=== PATIENT | male | born 1990 | race Caucasian/White ===

== ENCOUNTER 2017-10-08 18:09 | Emergency (ER) | payer SELFPAY ==
[2017-10-08 18:25] VITALS: BP 108/60
[2017-10-08] MEDS ORDERED: Ketorolac INJ* 60 MG/2 ML VIAL IM ONE (18:42)
--- NOTE | 2017-10-08 18:47 | UC ---
Back Pain HPI - HPI Summary HPI Summary: bent over this morning and has sudden pain and spasm in his lumbar back has used ibuprofen and Lidoderm patch without relief today--no radiating in to legs no bowel or bladder issues - History of Current Complaint Chief Complaint: UCBackPain Stated Complaint: BACK COMPLAINT Time Seen by Provider: 10/08/17 18:36 Hx Obtained From: Patient Onset/Duration: Sudden Onset, Lasting Days - 1 Timing: Constant Pain Intensity: 7 Pain Scale Used: 0-10 Numeric Back Pain: Is Discrete @ - lumbar spine Character: Aching, Throbbing, Spasmodic, Stiffness Aggravating Factor(s): Movement Alleviating Factor(s): Nothing - Allergies/Home Medications Allergies/Adverse Reactions: Allergies Allergy/AdvReac Type Severity Reaction Status Date / Time No Known Allergies Allergy Verified 10/08/17 18:19 Home Medications: Home Medications Acetaminophen [Extra Strength Non-Aspirin] 1,000 mg PO Q6H PRN 10/08/17 [ History Confirmed 10/08/17] PMH/Surg Hx/FS Hx/Imm Hx Previously Healthy: Yes - Surgical History Surgical History: Yes Surgery Procedure, Year, and Place: below nipple cyst removed ~2010 - Family History Known Family History: Positive: None - Social History Occupation: Unemployed Lives: With Family Alcohol Use: None Substance Use Type: None Substance Use Comment - Amount & Last Used: past hx of opiates--stopped in 2014 Smoking Status (MU): Heavy Every Day Tobacco Smoker Type: Cigarettes Amount Used/How Often: 1 ppd Length of Time of Smoking/Using Tobacco: 11 yrs Have You Smoked in the Last Year: Yes Cessation Counseling: Patient Advised to Stop Review of Systems Constitutional: Negative Skin: Negative Eyes: Negative ENT: Negative Respiratory: Negative Cardiovascular: Negative Gastrointestinal: Negative Genitourinary: Negative Motor: Decreased ROM - lumbar spine Neurovascular: Negative Musculoskeletal: Arthralgia - lumar spine Neurological: Negative Psychological: Negative Is Patient Immunocompromised?: No All Other Systems Reviewed And Are Negative: Yes Physical Exam Triage Information Reviewed: Yes Appearance: Well-Appearing, Well-Nourished, Pain Distress Vital Signs: Initial Vital Signs Temp 97.8 F 10/08/17 18:21 Pulse 66 10/08/17 18:21 Resp 14 10/08/17 18:21 BP 108/60 10/08/17 18:21 Pulse Ox 100 10/08/17 18:21 Vital Signs Reviewed: Yes Eye Exam: Normal Eyes: Positive: Conjunctiva Clear ENT Exam: Normal ENT: Positive: Normal ENT inspection, Hearing grossly normal. Negative: Trismus , Muffled voice, Hoarse voice Dental Exam: Normal Neck exam: Normal Neck: Positive: Supple, Nontender, No Lymphadenopathy Respiratory Exam: Normal Respiratory: Positive: Chest non-tender, No respiratory distress, No accessory muscle use Cardiovascular Exam: Normal Cardiovascular: Positive: RRR, Pulses Normal, Brisk Capillary Refill Abdominal Exam: Normal Abdomen Description: Negative: CVA Tenderness (R), CVA Tenderness (L) Musculoskeletal Exam: Other Musculoskeletal: Positive: Strength Intact, No Edema, ROM Limited @ - lumbar spine Neurological Exam: Normal Neurological: Positive: Alert, Muscle Tone Normal Psychological Exam: Normal Skin Exam: Normal Diagnostics - Radiology No standard instances Xray Interpretation: No Acute Changes Radiology Interpretation Completed By: ED Physician, Radiologist - Patient Name : TARIQ HAMILTON Medical Record#: [id number] Ordering Physician: Cherelle Ortega NP Acct.#: [id number] : 1990 Age: 27 Sex: M Location: [facility] Exam Date : 10/08/17 184 ADM Status: REG ER Order Information: SP LUMBARSACRAL 4+ VWS Accession Number: [id number] CPT: 35816 Indication: Low back pain since yesterday without proceeding injury. Comparison: No relevant prior exams available on the [facility] PACS for comparison. Technique: AP, lateral, and oblique views lumbar sacral spine. Report: Alignment is anatomic. No cortical disruption or trabecular impaction to indicate a vertebral body fracture. Oblique views without evidence for spondylolysis. Multilevel small Schmorl node endplate herniations. Multilevel mild disc space narrowing with sparing at L4- L5. Mild L5-S1 facet joint osteoarthritis. Unremarkable soft tissue contours. IMPRESSION: #. Mild degenerative spondylosis and facet joint osteoarthritis. _ <Electronically signed by Binh Barraza MD in OV> 10/08/17 190 Dictated By: Binh Barraza MD Dictated Date/Time: 10/08/171907 Transcribed Date/Time: 10/08/171900 Copy to: CC:Jessica Solis MD; Cherelle Ortega SHOWER ROOM ATTENDANT; [facility] - [facility] Imaging - [facility] - [facility] [id number] [place] [id number] [place] [id number] ph ([phone]) ph ([phone]) ph ) This report is only to be considered final once signed by the Provider(s) as displayed in the "<Electronically Signed by >" field (s). Absence of a signature indicates the report is in a draft status and still needs to be finalized. In the event this document was created by someone other than the signing Provider, the individual initiating the document will be listed in the "Entered by:" or "Dictated by:" chopra. 1 of 1 Back Pain Course/Dx - Course Course Of Treatment: lidoderm patch, nsaids, heat massage, low back exercise follow with pcp or free clinic - Differential Dx/Diagnosis Provider Diagnoses: acute muscle spasm low back Discharge - Sign-Out/Discharge Documenting (check all that apply): Patient Departure - Discharge Plan Condition: Stable Disposition: HOME Prescriptions: Lidocaine PATCH 5%* [Lidoderm 5% Patch*] 1 patch TRANSDERM DAILY #15 patch Patient Education Materials: Acute Low Back Pain (ED), Lower Back Exercises (ED ), Core Strengthening Exercises (ED) Referrals: [facility] [Outside] - 1 Week Aba Zheng [Primary Care Provider] - 1 Week - Billing Disposition and Condition Condition: STABLE Disposition: Home
--- NOTE | 2017-10-08 19:11 | RAD ---
Indication: Low back pain since yesterday without proceeding injury. Comparison: No relevant prior exams available on the [facility] PACS for comparison. Technique: AP, lateral, and oblique views lumbar sacral spine. Report: Alignment is anatomic. No cortical disruption or trabecular impaction to indicate a vertebral body fracture. Oblique views without evidence for spondylolysis. Multilevel small Schmorl node endplate herniations. Multilevel mild disc space narrowing with sparing at L4-L5. Mild L5-S1 facet joint osteoarthritis. Unremarkable soft tissue contours. IMPRESSION: #. Mild degenerative spondylosis and facet joint osteoarthritis.
== END 2017-10-08 19:50 | disposition home or self-care (01) ==
LOC: UCCORT 18:09
DX: M62.830 Muscle spasm of back (principal)
CPT/HCPCS: 72110; 96372; 99212; G0463; J1885